=== PATIENT | female | born 1950 | race Caucasian/White ===

== ENCOUNTER → 2018-12-11 | Outpatient (CLI) | payer OTHER, MEDICARE | LOC: M.RAD 16:26 | DX: Z12.31 Encounter for screening mammogram for malignant neoplasm of breast (principal) ==

== ENCOUNTER → 2018-12-17 | Outpatient (CLI) | payer OTHER, MEDICARE | LOC: M.ULTRA 13:58 | DX: N63.21 Unspecified lump in the left breast, upper outer quadrant (principal) ==

== ENCOUNTER → 2020-01-22 | Outpatient (CLI) | payer OTHER, MEDICARE | LOC: M.RAD 16:01 | DX: Z12.31 Encounter for screening mammogram for malignant neoplasm of breast (principal) ==

== ENCOUNTER → 2021-01-26 | Outpatient (CLI) | payer OTHER, MEDICARE | LOC: M.RAD 15:58 | PROVIDERS: ATTEND Internal Medicine Endocrinology, Diabetes & Metabolism | DX: Z12.31 Encounter for screening mammogram for malignant neoplasm of breast (principal) ==